=== PATIENT | female | born 2000 | race Caucasian/White ===

== ENCOUNTER 2021-09-12 12:16 | Emergency (ER) | payer OTHER, SELFPAY ==
[2021-09-12 12:35] VITALS: BP 113/66; PULSE 69; RESP 14; TEMP 37.1; O2SAT 99; BMI 20.5
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
[2021-09-12] MEDS: ACETAMINOPHEN 325 MG TABLET 975 MG PO (16:47)
[2021-09-12 16:58] VITALS: BP 95/65; PULSE 79; RESP 16; O2SAT 99
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
== END 2021-09-12 17:06 | disposition home or self-care (01) ==
PROVIDERS: Emergency Provider Student in an Organized Health Care Education/Training Program
DX: S06.0X0A Concussion without loss of consciousness, initial encounter (principal); V47.0XXA Car driver injured in collision with fixed or stationary object in nontraffic accident, initial encounter
CPT/HCPCS: 99283